=== PATIENT | male | born 1985 | race Caucasian/White ===

== ENCOUNTER 2016-06-24 02:30 | Observation (INO) ==
--- NOTE | 2016-06-24 02:49 | Emergency Department Note ---
Disposition Clinical Impression: Abnormal EKG Chest pain Qualifiers: Chest pain type: other chest pain Qualified Code(s): R07.89 - Other chest pain Disposition: Admitted As Inpatient Condition: Fair Time of Disposition: 04:57 Neuro HPI - General Chief Complaint: ED Nausea/Vomiting/Diarrhea Stated Complaint: N/V Time Seen by Provider: 06/24/16 02:33 Source: patient Mode of arrival: ambulatory Limitations: no limitations Nursing Notes Reviewed: Yes Vital Signs Reviewed: Yes - History of Present Illness HPI Narrative: 22-year-old male that presents with paresthesias to his right face, chest pain shortness breath and diaphoresis a few hours prior. Patient states that he woke up with symptoms and felt tingling and numbness in his face. Essentially spread to his bilateral face and bilateral upper extremities. Patient has a history of migraines, numbness taken propranolol but is not taking this lately. 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 Patient has no cardiac history no history of sudden in his family. Patient states that he has a history of hypertension or diabetes, no family history of heart attack. His pain was 5 out of 10, nonradiating mid chest. He said his chest pain is currently resolved, denies recent fever chills or weakness. Symptom Onset Unknown: Yes Location: left face, right face History of same: No Severity: none Symptoms Improving: No Improves with: time Worsens with: none On Anticoagulants: No Associated symptoms: Reports: chest pain. Denies: confusion, cough, diaphoresis , headaches, loss of appetite, malaise, nausea/vomiting - Related Data Home Medications: Home Medications Medication Instructions Recorded Confirmed Omeprazole [PriLOSEC] 20 mg PO DAILY 06/24/16 06/24/16 Propranolol [Inderal] 20 mg PO BID 06/24/16 06/24/16 Allergies/Adverse Reactions: Allergies Allergy/AdvReac Type Severity Reaction Status Date / Time No Known Allergies Allergy Verified 06/24/16 08:07 All systems ED: reviewed and negative except as stated. Constitutional: Denies: fever, chills Eyes: Denies: eye pain, eye discharge Cardiovascular: Reports: as per HPI, chest pain, dyspnea on exertion Respiratory: Denies: cough, dyspnea Gastrointestinal: Denies: abdominal pain, nausea, vomiting Genitourinary: Denies: urgency, dysuria Musculoskeletal: Denies: back pain Integumentary: Denies: rash Past Medical History - Past Medical History Attestation: Yes The following information was validated with the patient. Source: patient Medical history: Reports: non-contributory - Social History Smoking Status: Never smoker Smokeless Tobacco Status: No Alcohol use: Reports: rarely Physical Exam Constitutional: alert and oriented, appears moderately anxious. vital signs reviewed and wnl Neck: normal inspection, neck is supple, trachea midline Resp: normal chest inspection, CTA bilaterally, no resp distress CV: RRR, no m/g/r GI: normal inspection, Soft, NTND, BS present Back: normal inspection, no tenderness to palpation Neuro: A&O3, no gross motor or sensory deficits bilaterally MSK: normal inspection, bilateral UE and LE with normal ROM Psych: normal mood, normal affect Skin: No rashes, skin warm, dry, intact Course Course Narrative: 22-year-old male with chest pain earlier today, intermittent symptoms of chest pain shortness breath diaphoresis, woke up lifting and his face, near syncope, patient is an EKG that shows T-wave inversions in leads V3 V4 and V5, and ST depressions. Concerning for a Well[facility] however patient has no chest pain currently, and does not appear in ACS. Vital Signs Temperature 98.3 F 06/24/16 02:45 Pulse Rate 108 06/24/16 02:45 Respiratory Rate 18 06/24/16 02:45 Blood Pressure 151/106 06/24/16 02:45 O2 Sat by Pulse Oximetry 92 L 06/24/16 02:45 Temperature 97.7 F 06/24/16 15:01 Pulse Rate 89 06/24/16 15:01 Respiratory Rate 16 06/24/16 15:01 Blood Pressure 139/94 06/24/16 15:01 O2 Sat by Pulse Oximetry 95 06/24/16 15:01 Oxygen Delivery Oxygen Delivery Room Air Neuro Symptoms/Deficit - MDM Narrative Medical decision making narrative: 30-year-old male with near-syncope, chest pain or after activity with diaphoresis, sours on the ED, given aspirin, repeat EKG shows no worsening, improving acid impression shoulder still has inverted T-wave. - Differential Diagnosis Likely: cerebrovascular accident, subarachnoid hemorrhage, transient cerebral ischemia, convulsions - Medical Records Medical records reviewed: Yes I reviewed the patient's medical records. - Lab Data Lab results reviewed: Yes I reviewed the patient's lab results. Result diagrams: 06/24/16 02:54 06/24/16 02:54 Lab Results 06/24/16 06/24/16 06/24/16 Range/Units 02:40 02:54 02:54 WBC 11.3 H (4.3-11.1) K/mcL RBC 5.28 (4.19-5.50) M/mcL Hgb 15.4 (12.9-16.9) g/dL Hct 44.1 (37.5-50.1) % MCV 83.5 (83.0-100.0) fL MCH 29.2 (28.0-33.3) pg MCHC 34.9 (31.6-35.5) g/dL RDW 12.3 (11.5-14.5) % Plt Count 251 (140-400) K/mcL MPV 10.3 (9.4-12.4) fL Immature Gran % 1.6 (0-4) % Seg Neutrophils % 58.9 % Lymphocytes % 21.2 % Monocytes % 12.1 % Eosinophils % 5.7 % Basophils % 0.5 % Neutrophils # 6.7 (1.6-8.9) K/mcL Lymphocytes # 2.4 (0.6-4.6) K/mcL Monocytes # 1.4 H (0.0-1.3) K/mcL Eosinophils # 0.6 (0.0-0.6) K/mcL Basophils # 0.1 (0.0-0.2) K/mcL Platelet Estimate Normal (Normal) Immature Plt Fraction 5.0 (1.1-6.1) % PT 12.5 H (9.4-12.1) Seconds INR 1.2 APTT 30.4 (26.0-36.0) Seconds Sodium (136-145) mEq/L Potassium (3.5-4.5) mEq/L Chloride (98-109) mEq/L Carbon Dioxide (19-29) mEq/L BUN (8-26) mg/dL Creatinine (0.72-1.25) mg/dL Est GFR ( Amer) (> 60) Est GFR (Non-Af Amer) (> 60) BUN/Creatinine Ratio (6-26) Glucose (70-99) mg/dL POC Glucose 129 H (58-89) Calculated Osmolality (280-300) Calcium (8.6-10.8) mg/dL Total Bilirubin (0.2-1.2) mg/dL Direct Bilirubin (0.0-0.5) mg/dL Indirect Bilirubin (0.0-1.2) mg/dL AST (5-34) Units/L ALT (0-55) Units/L Alkaline Phosphatase (38-126) Units/L Troponin I (0-0.03) ng/mL Serum Total Protein (6.0-8.3) g/dL Albumin (3.5-5.0) g/dL Globulin (2.4-3.5) g/dL Albumin/Globulin Ratio (1.1-2.2) TSH (0.350-4.840) mcIU/mL 06/24/16 06/24/16 Range/Units 02:54 02:54 WBC (4.3-11.1) K/mcL RBC (4.19-5.50) M/mcL Hgb (12.9-16.9) g/dL Hct (37.5-50.1) % MCV (83.0-100.0) fL MCH (28.0-33.3) pg MCHC (31.6-35.5) g/dL RDW (11.5-14.5) % Plt Count (140-400) K/mcL MPV (9.4-12.4) fL Immature Gran % (0-4) % Seg Neutrophils % % Lymphocytes % % Monocytes % % Eosinophils % % Basophils % % Neutrophils # (1.6-8.9) K/mcL Lymphocytes # (0.6-4.6) K/mcL Monocytes # (0.0-1.3) K/mcL Eosinophils # (0.0-0.6) K/mcL Basophils # (0.0-0.2) K/mcL Platelet Estimate (Normal) Immature Plt Fraction (1.1-6.1) % PT (9.4-12.1) Seconds INR APTT (26.0-36.0) Seconds Sodium 137 (136-145) mEq/L Potassium 3.3 L (3.5-4.5) mEq/L Chloride 109 (98-109) mEq/L Carbon Dioxide 17 L (19-29) mEq/L BUN 13 (8-26) mg/dL Creatinine 0.99 (0.72-1.25) mg/dL Est GFR ( Amer) > 60 (> 60) Est GFR (Non-Af Amer) > 60 (> 60) BUN/Creatinine Ratio 13 (6-26) Glucose 139 H (70-99) mg/dL POC Glucose (58-89) Calculated Osmolality 286 (280-300) Calcium 9.2 (8.6-10.8) mg/dL Total Bilirubin 1.1 (0.2-1.2) mg/dL Direct Bilirubin 0.3 (0.0-0.5) mg/dL Indirect Bilirubin 0.8 (0.0-1.2) mg/dL AST 47 H (5-34) Units/L ALT 89 H (0-55) Units/L Alkaline Phosphatase 81 (38-126) Units/L Troponin I 0.00 (0-0.03) ng/mL Serum Total Protein 6.7 (6.0-8.3) g/dL Albumin 3.6 (3.5-5.0) g/dL Globulin 3.1 (2.4-3.5) g/dL Albumin/Globulin Ratio 1.2 (1.1-2.2) TSH 1.325 (0.350-4.840) mcIU/mL - Radiology Data Radiology results reviewed: Yes I reviewed the patient's radiology results. Chest X-Ray 06/24/16 02:46 IMPRESSION: No active cardiopulmonary disease. D/ / Shadi Alejandra MD / Shadi Alejandra MD Interpreting Provider: Shadi Alejandra MD Head CT 06/24/16 02:47 IMPRESSION: 1. No acute intracranial abnormality. D/ / Saeed Rizzo MD / Saeed Rizzo MD Interpreting Provider: Saeed Rizzo MD - EKG Data EKG attestation: Yes I reviewed and interpreted this EKG. Rate: tachycardia (Sinus tach rate of 114 [place] 112 QRS 90 QTc 395) [place]/QRS: normal ST segment depression in: v3, v4, v5 T wave inversions noted in: v3, v4, v5 When compared to previous EKG there are: previous EKG unavailable Interpretation: other (Repeat EKG at 4:58 AM shows a ventricular rate of 98 [place] 138 QRS 87 QTC 394) - Core Measures AMI Core Measures Followed: Yes Attestation Statement - Attestation Attestation: I examined this patient and my medical decision-making was reviewed with the TERRAZZO ROLLER/PA/Advanced Practice Nurse/Resident Physician. I agree with the documented findings, disposition and treatment plan as described except to the extent set forth below. 30 yo male presents with concern of chest pain and paresthesisas. 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 Pt states he recently developed tingling in the bilateral lower face and the bilateral distal fingertips. CT head negative for acute ICH. ECG shows Twave inversions of V3,[address] depressions. No chest pain in the ED. initial trop negative. Pt will be admitted for chest pain with ECG changes.
[2016-06-24 03:00] LABS: Basophils # 0.1 K/mcL (0.0-0.2); Basophils % 0.5 %; Eosinophils # 0.6 K/mcL (0.0-0.6); Eosinophils % 5.7 %; Hematocrit 44.1 % (37.5-50.1); Hemoglobin 15.4 g/dL (12.9-16.9); Immature Granulocytes % 1.6 % (0-4); Lymphocytes # 2.4 K/mcL (0.6-4.6); Lymphocytes % 21.2 %; Mean Corpuscular HGB Conc 34.9 g/dL (31.6-35.5); Mean Corpuscular Hemoglobin 29.2 pg (28.0-33.3); Mean Corpuscular Volume 83.5 fL (83.0-100.0); Mean Platelet Volume 10.3 fL (9.4-12.4); Monocytes # 1.4 K/mcL (0.0-1.3); Monocytes % 12.1 %; Neutrophils # 6.7 K/mcL (1.6-8.9); Platelet Count 251 K/mcL (140-400); Red Blood Count 5.28 M/mcL (4.19-5.50); Red Cell Distribution Width 12.3 % (11.5-14.5); Segmented Neutrophils % 58.9 %
[2016-06-24 03:04] LABS: INR 1.2; Prothrombin Time 12.5 Seconds (9.4-12.1)
[2016-06-24 03:07] LABS: Activated Partial Thrombo Time 30.4 Seconds (26.0-36.0)
[2016-06-24 03:11] LABS: BUN/Creatinine Ratio 13 (6-26); Blood Urea Nitrogen 13 mg/dL (8-26); Calcium 9.2 mg/dL (8.6-10.8); Carbon Dioxide 17 mEq/L (19-29); Chloride 109 mEq/L (98-109); Glucose 139 mg/dL (70-99); Osmolality,Calculated 286 (280-300); Potassium 3.3 mEq/L (3.5-4.5); Sodium 137 mEq/L (136-145); eGFR For African Americans > 60 (> 60); eGFR For Non-African Americans > 60 (> 60)
[2016-06-24] MEDS ORDERED: 0.9 % Sodium Chloride 1,000 ML ONE (03:37)
[2016-06-24] MEDS ORDERED: 0.9 % Sodium Chloride 1,000 ML IVC ONE (03:40)
[2016-06-24 03:46] LABS: Platelet Estimate Normal (Normal)
[2016-06-24] MEDS ORDERED: Aspirin 81 MG TAB.CHEW PO ONE (04:35)
[2016-06-24] MEDS ORDERED: Aspirin 81 MG TAB.CHEW ONE (04:59)
[2016-06-24 07:49] LABS: Alanine Aminotransferase 89 Units/L (0-55); Albumin 3.6 g/dL (3.5-5.0); Albumin/Globulin Ratio 1.2 (1.1-2.2); Alkaline Phosphatase 81 Units/L (38-126); Aspartate Amino Transferase 47 Units/L (5-34); Bilirubin,Direct 0.3 mg/dL (0.0-0.5); Bilirubin,Indirect 0.8 mg/dL (0.0-1.2); Bilirubin,Total 1.1 mg/dL (0.2-1.2); Globulin 3.1 g/dL (2.4-3.5); Total Protein 6.7 g/dL (6.0-8.3)
[2016-06-24 08:06] LABS: Thyroid Stimulating Hormone 1.325 mcIU/mL (0.350-4.840)
[2016-06-24] MEDS ORDERED: Naloxone 0.4 MG/ML INJ IVP PRN (08:08)
[2016-06-24] MEDS ORDERED: Ibuprofen 400 MG TABLET PO PRN (08:19)
--- NOTE | 2016-06-24 08:28 | Electrocardiograph Report ---
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
--- NOTE | 2016-06-24 08:29 | Electrocardiograph Report ---
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
--- NOTE | 2016-06-24 08:35 | Internal Med History&Physical ---
Date of Encounter: 06/24/16 Time of Encounter: 08:32 Assessment and Plan (1) Abnormal EKG Current visit: Yes Status: Acute ST depressions and T-wave inversions in the anterior leads Ordering echocardiogram, consult cardiology Monitor troponins, continue telemetry Consider stress test The patient will be admitted for observation. Full code. Time spent on this admission 40 minutes. High risk due to abnormal EKG Omeprazole for GI prophylaxis and Lovenox for DVT prophylaxis (2) Chest pain Current visit: Yes Status: Acute Qualifiers: Chest pain type: other chest pain Qualified Code(s): R07.89 - Other chest pain; R07.8 - Other chest pain (3) Dehydration Current visit: Yes Status: Acute Continue IV fluids (4) Transaminitis Current visit: Yes Status: Acute Unclear etiology monitor LFTs. ORDER lYME, EHRLICHIOSIS, tests consider RUQ US (5) GERD (gastroesophageal reflux disease) Current visit: Yes Status: Acute Continue omeprazole Qualifiers: Esophagitis presence: without esophagitis Qualified Code(s): K21.9 - Gastro -esophageal reflux disease without esophagitis (6) Migraine Current visit: Yes Status: Acute The patient used to take propranolol and Imitrex, has not been taking his propranolol for the past month and has not taking any Imitrex in the past 4 months Qualifiers: Migraine type: without aura Status migrainosus presence: without status migrainosus Intractability: not intractable Qualified Code(s): G43.009 - Migraine without aura, not intractable, without status migrainosus (7) Hypokalemia Current visit: Yes Status: Acute Replete as needed (8) Facial numbness Current visit: Yes Status: Acute Order an [facility] Internal Medicine - H&P: HPI Chief complaint: Facial numbness and chest tightness Admitted From: Emergency Dept History of present illness: Mr. Frey is a 30 year old male with a past medical history of migraines and GERD who came to the emergency room complaining of shortness of breath, diaphoresis, initially right facial numbness that progressed today left side, accompanied by bilateral hand numbness. 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 His white blood cell count is 11.3 his potassium is 3.3, he said that his was probably slightly dehydrated. Today his AST is 47 and ALT is 89. His heart rate was 108 and his blood pressure is 151/106. The EKG shows ST depressions in T-wave inversions in the anterior leads. He says he has been having a dry cough for a while, denies any fevers but has been having some blurry vision, nausea and feels lightheaded. Past Med Surg Social Fam HX - Past Medical History Medical history: GERD, migraine - Past Surgical History Surgical History: no surgical history - Social History Smoking Status: Never smoker Smokeless Tobacco Status: No Alcohol use: occasionally Drug use: none - Additional Family History Additional family history: Mother with leukemia and myocardial infarction in her late 40s Internal Medicine - H&P: Meds Omeprazole [PriLOSEC] 20 mg PO DAILY 06/24/16 [History] Propranolol [Inderal] 20 mg PO BID 06/24/16 [History] Allergies No Known Allergies Allergy (Verified 06/24/16 08:07) All Systems PM: A 10-system review of systems was performed and is negative for pertinent findings except as documented above in the HPI. Review of systems: Feels fatigued, denies any abdominal pain, no diarrhea, no dysuria. Other systems out of the ten reviewed were negative - Constitutional Vitals: Temp Pulse Resp BP Pulse Ox 97.8 F 90 16 122/87 93 L 06/24/16 06:47 06/24/16 06:47 06/24/16 06:47 06/24/16 06:47 06/24/16 06:47 - Head Head exam: Present: atraumatic, normocephalic - Eye Eye exam: Present: PERRL, conjuntiva pink, sclera anicteric Pupils: Present: PERRL - Neck Neck exam general surgery: Present: supple, trachea midline. Absent: lymphadenopathy - Respiratory Respiratory exam: Present: CTAB. Absent: accessory muscle use, rales, rhonchi, wheezes - Cardiovascular Cardiovascular exam: Present: RRR, +S1, +S2, tachycardia. Absent: diastolic murmur, gallop, rubs, systolic murmur - GI/Abdominal GI/Abdominal exam: Present: normal bowel sounds, soft, no peritoneal signs. Absent: distended, tenderness - Extremities Exam Extremities exam: Present: warm, radial pulses palpable and symetrical. Absent : calf tenderness, cyanotic, pedal edema - Neurological Exam Neurological exam: Present: CN II-XII intact, oriented X3, no focal deficits. Absent: pronater drift, facial droop, speech deficit - Skin Skin exam: Present: dry, intact Internal Med - H&P Results - Labs CBC & Chem 7: 06/24/16 02:54 06/24/16 02:54
[2016-06-24 09:34] LABS: Chol/HDL Ratio 5.9 (0-4.9)
[2016-06-24] MEDS: 0.9 % Sodium Chloride 1,000 ML IVC SCH ×3 (10:45→21:28)
[2016-06-24 10:46] LABS: Bilirubin,Urine Negative (Negative); Blood,Urine Negative (Negative); Clarity,Urine Clear (Clear); Color,Urine Yellow (Yellow); Glucose,Urine (UA) Normal (Normal); Ketones,Urine Negative (Negative); Leukocyte Esterase,Urine Negative (Negative); Nitrite,Urine Negative (Negative); Protein,Urine Negative (Neg-Trace); Specific Gravity,Urine 1.011 (1.010-1.025); Urobilinogen,Urine Normal (Normal)
--- NOTE | 2016-06-24 11:27 | Cardiology Consult Note ---
<Karel Burks - Last Filed: 06/24/16 11:21> Date of Encounter: 06/24/16 Time of Encounter: 11:20 Assessment and Plan (1) Chest pain Current Visit: Yes Status: Acute Mr. Frey presents with n/t in his face and hands, dizziness, and he also describes intermittent chest pressure increasing with cough. His discomfort occurs with dyspnea and increases with cough. Chest pain sounds pleuritic in the setting of recent bronchitis. His EKG Shows T wave changes in the anteriolateral leads. Possible LVH. Non-specific changes in the inferior leads. Troponin negative x 1. MRI of the head negative for acute infarct. Cardiac risk factors include family history (mother CT at age 46), probable hypertension, HLD . Check TTE. Continue to trend troponin. Qualifiers: Chest pain type: other chest pain Qualified Code(s): R07.89 - Other chest pain; R07.8 - Other chest pain (2) Abnormal EKG Current Visit: Yes Status: Acute See plan above. Discussion w patient/family: The assessment and plan as outlined above was discussed with the patient and/or family members who expressed understanding and agreement. All questions were answered. Thank you for involving us in the care of your patient. Please call with any questions. History of Present Illness Consult date: 06/24/16 Requesting physician: Sanjay Short Consult reason: abnormal EKG Chief complaint: Numbness and tingling in face and hands, chest discomfort History of present illness: Mr. Frey is a 30 year old male who presents with numbness and tingling in his right face and fingers associated with dizziness. He also reports intermittent midsternal chest tightness and dyspnea with exertion over the past month. Diagnosed with bronchitis two weeks ago and took antibiotic. Continues to have dry cough. His chest pain increases with cough. His initial work-up revealed mildly elevated WBC, hyperlipidemia, mild elevation in liver enzymes, and hypokalemia. He was initially tachycardic and now NSR, b/p 156/106. He denies fever or chills. His EKG showed sinus tachycardia with T wave inversion in the anteriolateral leads. Non-specific t wave changes in the inferior leads. HR 120 bpm. There is no previous EKG to compare. Cardiology consulted for abnormal EKG. He denies previous history of heart disease. No previous cardiac work-up. Past Med Surg Social Fam HX - Past Medical History Medical history: GERD, migraine - Past Surgical History Surgical History: no surgical history - Social History Smoking Status: Never smoker Smokeless Tobacco Status: No Alcohol use: occasionally Drug use: none - Family History Mother Cause of : leukemia Hx Family Cardiac Disorders: Yes (CT at age 46) Medications and Allergies Omeprazole [PriLOSEC] 20 mg PO DAILY 06/24/16 [History] Propranolol [Inderal] 20 mg PO BID 06/24/16 [History] Allergies No Known Allergies Allergy (Verified 06/24/16 08:07) All Systems Review: A 10-system review of systems was performed and is negative for pertinent findings except as documented above in the HPI. Physical Examination Vital Signs Temp Pulse Resp BP Pulse Ox 06/24/16 06:47 97.8 F 90 16 122/87 93 L 06/24/16 06:13 16 148/84 06/24/16 04:25 82 16 149/98 98 06/24/16 02:45 98.3 F 108 18 151/106 92 L Intake and Output 06/23/16 06/24/16 06/24/16 23:59 07:59 15:59 Intake Total 1000 / 1000 Balance 1000 / 1000 Intake: IV Fluids 1000 / 1000 0.9 % Sodium Chloride 1, 1000 / 1000 000 ML @ 3750 mls/hr IVC .Q16M ONE Rx#:[id number] Other: Weight 122.47 kg Blood Glucose* 129 Patient Weight 06/24/16 23:59 Weight 122.47 kg General: Conversant, No Apparent Distress HEENT: Atraumatic, Normocephaly, Mucus Membranes Moist Neck: No JVD, Normal carotid pulses Cardiac: Reg Rate and Rhythm, Normal S1 and S2, No Murmur Lungs: Normal Breath Sounds, No Wheeze, Rales, Rhonchi, Other (Dry cough) Neuro: Alert and responsive, No focal deficits noted Abdomen: Soft, Non-Tender Skin: No rashes noted on visualized skin Musculoskeletal: No Chest Wall Tenderness Extremities: No Clubbing, No Cyanosis, No Edema, Normal Pulses Results 06/24/16 02:54 06/24/16 02:54 Lab Results 06/24/16 06/24/16 08:43 08:43 Magnesium 2.0 Troponin I 0.00 - Imaging and Cardiology Echo: pending - EKG Interpretation EKG results cardiology: personally reviewed (SR, with inverted t-waves in V2-V5 (possible LVH), non-specific inferior t-wave problems.) Consult Discharge Plan - Plan Referrals: Lavelle Pham MD [Primary Care Provider] - <Neha Sarah - Last Filed: 06/24/16 14:37> Assessment and Plan Discussion w patient/family: The assessment and plan as outlined above was discussed with the patient and/or family members who expressed understanding and agreement. All questions were answered. Thank you for involving us in the care of your patient. Please call with any questions. History of Present Illness History of present illness: Mr. Frey is a 30 year old male All Systems Review: A 10-system review of systems was performed and is negative for pertinent findings except as documented above in the HPI. Physical Examination Vital Signs, Last 4 Hours Temp Pulse Resp BP Pulse Ox 06/24/16 11:33 98.0 F 97 16 131/87 95 Results 06/24/16 02:54 06/24/16 02:54 Lab Results 06/24/16 06/24/16 08:43 08:43 Magnesium 2.0 Troponin I 0.00 - Attending Attestation I examined this patient and my medical decision-making was reviewed with the CHEMISTRY TEACHER/PA/Advanced Practice Nurse/Resident Physician. I agree with the documented findings, disposition and treatment plan. Mr. Frey is a young 30 year old man presenting with nonspecific symptoms of intermittent chest pain and arm numbness and tingling. He reports being diagnosed with bronchitis a few weeks ago and hasn't felt back to his usual state of health since that time. He also feels dyspneic with exertion. He presents today with an ECG demonstrating abnormal ST-T wave findings in the precordial leads. His troponin is negative x 2 and we would not expect a 30 year old who doesn't smoke or have diabetes to have obstructive CAD as a cause for his symptoms. His symptoms are also not consistent with pericarditis. Nevertheless, because of his symptoms and abnormal ECG we recommend an echo for an evaluation of structural heart disease. We may consider a stress echo for functional information.
[2016-06-24] MEDS: *HR* Enoxaparin 40 MG/0.4 ML SYRINGE SQ SCH (12:23)
[2016-06-24] MEDS: Acetaminophen 325 MG TABLET PO PRN (12:28)
[2016-06-24] MEDS: Ondansetron ODT 4 MG TAB.RAPDIS SL PRN ×2 (12:28→21:25)
[2016-06-25] MEDS: 0.9 % Sodium Chloride 1,000 ML IVC SCH (04:16)
[2016-06-25 04:49] LABS: Hematocrit 41.3 % (37.5-50.1); Hemoglobin 14.1 g/dL (12.9-16.9); Mean Corpuscular HGB Conc 34.1 g/dL (31.6-35.5); Mean Corpuscular Hemoglobin 29.6 pg (28.0-33.3); Mean Corpuscular Volume 86.8 fL (83.0-100.0); Mean Platelet Volume 10.9 fL (9.4-12.4); Platelet Count 209 K/mcL (140-400); Red Blood Count 4.76 M/mcL (4.19-5.50); Red Cell Distribution Width 12.6 % (11.5-14.5)
[2016-06-25 05:07] LABS: Alanine Aminotransferase 74 Units/L (0-55); Albumin 3.3 g/dL (3.5-5.0); Albumin/Globulin Ratio 1.2 (1.1-2.2); Alkaline Phosphatase 73 Units/L (38-126); Aspartate Amino Transferase 45 Units/L (5-34); BUN/Creatinine Ratio 12 (6-26); Bilirubin,Total 0.6 mg/dL (0.2-1.2); Blood Urea Nitrogen 13 mg/dL (8-26); Calcium 9.1 mg/dL (8.6-10.8); Carbon Dioxide 21 mEq/L (19-29); Chloride 113 mEq/L (98-109); Globulin 2.8 g/dL (2.4-3.5); Glucose 105 mg/dL (70-99); Osmolality,Calculated 288 (280-300); Potassium 4.3 mEq/L (3.5-4.5); Sodium 139 mEq/L (136-145); Total Protein 6.1 g/dL (6.0-8.3); eGFR For African Americans > 60 (> 60); eGFR For Non-African Americans > 60 (> 60)
[2016-06-25] MEDS: *HR* Enoxaparin 40 MG/0.4 ML SYRINGE SQ SCH (06:41)
--- NOTE | 2016-06-25 07:53 | ECHO - Doppler Report ---
Echocardiogram Name: Alek Frey Date of Study: 06/24/2016 Date: 1985 Ht: 72.0 in Medical Record#: [id number] Age: 30 Wt: 270.0 lb Gender: Male BSA: 2.42 Order #: [id number] Location: [facility] Room #: 3B33 Reading Physician: Kunal Pearce MD, [facility] [place] Room Operator: Neha Collins Ordering Physician: Sanjay Short MD Primary Physician: Lavelle Pham MD Indications: St depressions Impressions: Low-normal LV systolic function, LVEF 50-55%. Normal left ventricular diastolic function. Normal right ventricular size and function. No significant valvular dysfunction. Left Ventricular Wall Motion: Rest Echo Findings All wall segments showed normal motion. Findings: Study Quality * Technically adequate exam. ECG Findings * Normal sinus rhythm. Left Ventricle * Low-normal LV systolic function, LVEF 50-55%. * Normal LV chamber size and wall thickness. * Normal left ventricular diastolic function. Right Ventricle * Normal right ventricular size and function. Left Atrium * Normal left atrial size. Right Atrium * Normal right atrial size. Aorta * Normally sized aortic root. Pericardium * There is no pericardial effusion present. IVC * The IVC is not well evaluated. Aortic Valve * Aortic valve not well visualized. * No aortic stenosis. * No aortic regurgitation. Mitral Valve * Normal mitral valve structure. * No mitral stenosis. * Trace mitral regurgitation. Tricuspid Valve * Tricuspid valve not well visualized. * No tricuspid stenosis. * Trace tricuspid regurgitation. * Unable to estimate RVSP due to lack of TR jet. Pulmonic Valve * Pulmonic valve not well visualized. * No pulmonic stenosis. * Trace pulmonic regurgitation. History Family History of CAD Measurements: BP: 139/ 94 2D Normal Values RVIDd: 3.60 cm IVSd: 1.00 cm 0.6 - 1.0 cm LVIDd: 5.10 cm 3.7 - 5.6 cm LVPWd: 1.00 cm 0.6 - 1.1 cm LVIDs: 3.30 cm 1.5 - 3.6 cm AO: 3.20 cm < 4.0 cm %FS: 35.30 cm >25 % LA volume: 49 Mitral Valve Peak E:.89 m/sec Peak A:.52 m/sec E/A Ratio:1.7 Peak E' Lat Gen:16 cm/s Peak E' Med Gen:10.1 cm/s E/E' Lat Ratio:5.6 E/E' Med Ratio:8.8 Updated by Kunal Pearce MD, [facility] on 06/25/2016 7:47:08 AM electronically signed on 06/25/2016 7:47:39 AM with status of Final Wall Motion Araya: 1=Normal, 2=Hypokinesis, 3=Akinesis, 4=Dyskinesis, 5=Aneurysmal, 6=Hyperkinetic, X=Not Visualized (Blank)=Missing
--- NOTE | 2016-06-25 11:21 | Cardiology Progress Note ---
Date of Encounter: 06/25/16 Time of Encounter: 11:19 Assessment and Plan (1) Chest pain Current Visit: Yes Status: Acute Mr. Frey presents with n/t in his face and hands, dizziness, and he also describes intermittent chest pressure increasing with cough. His discomfort occurs with dyspnea and increases with cough. Chest pain sounds pleuritic in the setting of recent bronchitis. His EKG Shows T wave changes in the anteriolateral leads. Non-specific changes in the inferior leads. Troponin negative x 4. MRI of the head negative for acute infarct. TTE shows EF 50-55%, normal LV size and function, normal RV size and function, no significant valvular disease. Cardiac risk factors include family history (mother [place] at age 46), probable hypertension, HLD . Discussed with Dr. Sarah, We will proceed with stress echo to further evaluate. Qualifiers: Chest pain type: other chest pain Qualified Code(s): R07.89 - Other chest pain; R07.8 - Other chest pain (2) Abnormal EKG Current Visit: Yes Status: Acute See plan above. (3) Hyperlipidemia Current Visit: Yes Status: Acute Healthy diet and exercise discussed. Qualifiers: Hyperlipidemia type: pure hypercholesterolemia Qualified Code(s): E78.00 - Pure hypercholesterolemia, unspecified; E78.0 - Pure hypercholesterolemia Discussion w patient/family: The assessment and plan as outlined above was discussed with the patient and/or family members who expressed understanding and agreement. All questions were answered. Thank you for involving us in the care of your patient. Please call with any questions. Subjective Principal diagnosis: Chest pain, abnormal EKG Interval history: Mr. Frey reports his facial numbness resolved. MRI negative. He c/o intermittent chest congestion and cough. Objective Vital Signs, Last 4 Hours Temp Pulse Resp BP Pulse Ox 06/25/16 10:51 98.0 F 91 16 118/72 93 L 06/25/16 08:54 126/78 General: Conversant, No Apparent Distress HEENT: Atraumatic, Normocephaly, Mucus Membranes Moist Neck: No JVD, Normal carotid pulses Cardiac: Reg Rate and Rhythm, Normal S1 and S2, No Murmur Lungs: Normal Breath Sounds, No Wheeze, Rales, Rhonchi Neuro: Alert and responsive, No focal deficits noted Abdomen: Soft, Non-Tender Skin: No rashes noted on visualized skin Musculoskeletal: No Chest Wall Tenderness Extremities: No Clubbing, No Cyanosis, No Edema, Normal Pulses Results 06/25/16 04:07 06/25/16 04:07 Lab Results 06/24/16 06/24/16 06/25/16 14:46 20:47 04:07 WBC 8.4 Hgb 14.1 Hct 41.3 Plt Count 209 Sodium Potassium Chloride Carbon Dioxide BUN Creatinine Glucose Calcium Total Bilirubin AST ALT Alkaline Phosphatase Troponin I 0.00 0.00 06/25/16 04:07 WBC Hgb Hct Plt Count Sodium 139 Potassium 4.3 D Chloride 113 H Carbon Dioxide 21 BUN 13 Creatinine 1.11 Glucose 105 H Calcium 9.1 Total Bilirubin 0.6 AST 45 H ALT 74 H Alkaline Phosphatase 73 Troponin I - Imaging and Cardiology Echo: report reviewed - EKG Interpretation EKG results cardiology: personally reviewed Consult Discharge Plan - Plan Referrals: Lavelle Pham MD [Primary Care Provider] -
[2016-06-25] MEDS: Acetaminophen 325 MG TABLET PO PRN (14:27)
--- NOTE | 2016-06-25 15:03 | Nuclear Medicine Stress Report ---
Stress Echo No Doppler Name: Alek Frey Date of Study: 06/25/2016 Date: 1985 Ht: 72.0in Medical Record#: [id number] Age: 30 Wt: 270.0lb Gender: Male BSA: 2.42 Order #: [id number] Location: [facility] Room #: 3B Reading Physician: Kunal Pearce MD, [facility] Supervisor Detasseling Crew: aPt Miller RDCS, RVT Supervising Provider: Deb Beaver CNP Primary Physician: Lavelle Pham MD Ordering Physician: Karel Burks CNP Indications: Chest pain, Abnormal EKG Impressions: The exercise capacity was average. Patient reported moderate chest tightness with exercise. Stress ECG is non-diagnostic for ischemia due to baseline ST-T wave abnormalities. Normal LV systolic function, LVEF 55-60% Appropriate increase in contractility of all myocardial segments with exercise. No echocardiographic evidence of ischemia. Findings: Stress Echo * Baseline ECG demonstrated sinus rhythm, diffuse ST-T wave abnormalities. * No arrhythmias noted prior to exam beginning. * The exercise capacity was average. * The patient demonstrated a normal blood pressure response. * Patient reported moderate chest tightness with exercise. * No arrhythmias during exericse or recovery. * Stress ECG is non-diagnostic for ischemia due to baseline ST-T wave abnormalities. * Normal LV systolic function, LVEF 55-60% * Appropriate increase in contractility of all myocardial segments with exercise. Left Ventricular Wall Motion: Rest Echo Findings All wall segments showed normal motion. Stress Echo Findings All wall segments showed normal motion. Stress Test Summary: Treadmill Protocol: Korey Baseline Information: Resting Heart Rate: 98 Predicted Max HR: 192 Resting BP: 136/88 Stress Information: Stress Time: 6:00 minutes Test Terminated Due to: Chest pain Maximum Blood Pressure: 182/96 Maximum Heart Rate: 167 Percent Maximum Heart Rate Achieved: 87 Double Product: [id number] METS Reached: 7 History: Family History of CAD Previous Echo06/24/16 Updated by Kunal Pearce MD, [facility] on 06/25/2016 2:56:13 PM electronically signed on 06/25/2016 2:57:02 PM with status of Final Wall Motion Araya: 1=Normal, 2=Hypokinesis, 3=Akinesis, 4=Dyskinesis, 5=Aneurysmal, 6=Hyperkinetic, X=Not Visualized (Blank)=Missing Rest Stress
[2016-06-25 15:28] VITALS: BP 130/77
--- NOTE | 2016-06-25 16:04 | Discharge Summary ---
Date of Encounter: 06/25/16 Time of Encounter: 16:01 - Discharge Diagnosis (1) Dehydration Priority: Primary Status: Acute (2) Abnormal EKG Priority: Primary Status: Acute (3) Chest pain Priority: Primary Status: Acute Qualifiers: Chest pain type: other chest pain Qualified Code(s): R07.89 - Other chest pain; R07.8 - Other chest pain (4) Transaminitis Priority: Secondary Status: Acute (5) GERD (gastroesophageal reflux disease) Priority: Secondary Status: Acute Qualifiers: Esophagitis presence: without esophagitis Qualified Code(s): K21.9 - Gastro -esophageal reflux disease without esophagitis (6) Migraine Priority: Secondary Status: Acute Qualifiers: Migraine type: without aura Status migrainosus presence: without status migrainosus Intractability: not intractable Qualified Code(s): G43.009 - Migraine without aura, not intractable, without status migrainosus (7) Hypokalemia Priority: Secondary Status: Acute (8) Facial numbness Priority: Secondary Status: Acute - Discharge Medications Prescriptions: Omeprazole [PriLOSEC] 20 mg PO DAILY #30 capsule. Propranolol [Inderal] 20 mg PO BID #60 tablet Home Medications: Omeprazole [PriLOSEC] 20 mg PO DAILY #30 capsule. 06/25/16 [Rx] Propranolol [Inderal] 20 mg PO BID #60 tablet 06/25/16 [Rx] Allergies/Adverse Reactions: Allergies No Known Allergies Allergy (Verified 06/24/16 08:07) Procedures/tests Complete & Pending: Procedures Performed prior 72 hours Category Date Time Status MR head/brain wo con [MR] Routine MRI 06/24/16 08:29 Completed EV echocardiogram Routine Y 06/24/16 08:22 Completed EV stress echo Routine Y 06/25/16 09:05 Completed Date of admission: 06/24/16 04:55 Primary care physician: Lavelle Pham MD Consults: 06/24/16 08:31 Consult to Cardiology [CONS] Routine Comment: Consulting Provider: Cardiology Eula Reason for Consult: abnormal EKG, st depression anterior leads Call Completed: Yes - Patient Status Disposition: Home, Self-Care Condition: Good Overall status at discharge: patient is progressing back to baseline - Discharge Instructions Follow Up With: Lavelle Pham MD [Primary Care Provider] - Additional Instructions: Follow with primary care physician within the next 7 days. Avoid alcohol, decrease cholesterol/fatty meals intake. - Diet and Activity Activity: increase activity as tolerated Diet: low fat, low cholesterol Hospital course: Mr. Frey is a 30 year old male with a past medical history of migraines and GERD who came to the emergency room complaining of shortness of breath, diaphoresis, initially right facial numbness that progressed to the left side, accompanied by bilateral hand numbness. 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 His white blood cell count was 11.3 his potassium was 3.3, he said that he was probably slightly dehydrated. AST was 47 (now 45) and ALT (now 74) 89. Normal bilirubin 0.6 and direct bilirubin 0.3. . His heart rate was 108 and his blood pressure is 151/106. The EKG showed ST depressions in T-wave inversions in the anterior leads. The patient was admitted and was given IV fluids. The patient was evaluated by the cardiology service and because of his abnormal EKG and stress echo was indicated that did not show any abnormalities. His cholesterol level is 200 and his LDL is 138 HDL 34 the patient AST and ALT are slightly elevated he would prefer to follow with his primary care physician to start any other medication. She was offered albuterol as he gets short of breath during the test and possibly has some type of reactive airway disease but again he prefers to follow-up with his primary care physician. The stress echo does not show any abnormalities. Normal echocardiogram showed an ejection fraction of 50-55% with no wall motion abnormalities. MRI of the brain did not show any abnormalities. - Time Spent with Patient Total time spent providing and/or coordinating discharge services: Greater than 30 minutes (40 min) - Constitutional Vitals: Temp Pulse Resp BP Pulse Ox 97.6 F 67 15 130/77 97 06/25/16 15:26 06/25/16 15:26 06/25/16 15:26 06/25/16 15:26 06/25/16 15:26 - Head Head exam: Present: atraumatic, normocephalic - Eye Eye exam: Present: PERRL, conjuntiva pink, sclera anicteric Pupils: Present: PERRL - Neck Neck exam general surgery: Present: supple, trachea midline. Absent: lymphadenopathy - Respiratory Respiratory exam: Present: CTAB. Absent: accessory muscle use, rales, rhonchi, wheezes - Cardiovascular Cardiovascular exam: Present: RRR, +S1, +S2. Absent: diastolic murmur, gallop, rubs, systolic murmur - GI/Abdominal GI/Abdominal exam: Present: normal bowel sounds, soft, no peritoneal signs. Absent: distended, tenderness - Extremities Exam Extremities exam: Present: warm, radial pulses palpable and symetrical. Absent : calf tenderness, cyanotic, pedal edema - Neurological Exam Neurological exam: Present: CN II-XII intact, oriented X3, no focal deficits. Absent: pronater drift, facial droop, speech deficit - Skin Skin exam: Present: dry, intact
== END 2016-06-25 17:11 | disposition home or self-care (01) ==
LOC: 3BNU 02:30 → EMEROO 02:30 → SUATTDRO 04:55 → 3BNU 06:20
PROVIDERS: ADMIT Internal Medicine; ATTEND Internal Medicine

== ENCOUNTER 2020-10-16 01:41 | Observation (INO) ==
[2020-10-16 02:45] LABS: Basophils # 0.1 K/mcL (0.0-0.2); Basophils % 0.8 %; Eosinophils # 0.3 K/mcL (0.0-0.6); Eosinophils % 3.9 %; Hematocrit 48.3 % (37.5-50.1); Immature Granulocytes % 1.1 % (0-4); Lymphocytes # 2.3 K/mcL (0.6-4.6); Lymphocytes % 26.3 %; Mean Corpuscular HGB Conc 35.2 g/dL (31.6-35.5); Mean Corpuscular Hemoglobin 29.5 pg (28.0-33.3); Mean Corpuscular Volume 83.7 fL (83.0-100.0); Mean Platelet Volume 10.4 fL (9.4-12.4); Monocytes # 0.9 K/mcL (0.0-1.3); Neutrophils # 5.1 K/mcL (1.6-8.9); Platelet Count 312 K/mcL (140-400); Red Blood Count 5.77 M/mcL (4.19-5.50); Red Cell Distribution Width 12.1 % (11.5-14.5); Segmented Neutrophils % 57.9 %; White Blood Count 8.8 K/mcL (4.3-11.1)
[2020-10-16] MEDS ORDERED: Isovue-370 500 ML BOTTLE IVP ONE (02:56)
[2020-10-16 03:06] LABS: BUN/Creatinine Ratio 16 (6-26); Blood Urea Nitrogen 14 mg/dL (6-20); Calcium 10.6 mg/dL (8.6-10.3); Carbon Dioxide 19 mEq/L (23-29); Chloride 107 mEq/L (98-107); Glucose 135 mg/dL (70-105); Osmolality,Calculated 287 (280-300); Potassium 3.7 mEq/L (3.5-5.1); Sodium 137 mEq/L (136-145); eGFR For African Americans > 60 (> 60); eGFR For Non-African Americans > 60 (> 60)
[2020-10-16 03:07] LABS: Troponin I < 0.03 ng/mL (< 0.04)
[2020-10-16] MEDS ORDERED: Aspirin 81 MG TAB.CHEW PO ONE (05:58)
[2020-10-16] MEDS ORDERED: Nitroglycerin 0.4 MG TAB.SUBL SL ONE (06:01)
[2020-10-16] MEDS ORDERED: *HR* FentaNYL (PF) 100 MCG/2 ML VIAL IVP ONE (06:14)
[2020-10-16] MEDS ORDERED: Melatonin 3 MG TABLET PO PRN (07:47)
[2020-10-16] MEDS ORDERED: Acetaminophen 325 MG TABLET PO PRN (07:47)
[2020-10-16] MEDS ORDERED: Naloxone 0.4 MG/ML INJ IVP PRN (07:47)
[2020-10-16] MEDS ORDERED: Ondansetron 4 MG/2 ML VIAL IVP PRN (07:47)
[2020-10-16] MEDS ORDERED: Regadenoson 0.4 MG/5 ML SYRINGE IVP ONE ×2 (08:42→10:53)
[2020-10-16] MEDS ORDERED: Pantoprazole 40 MG VIAL IVP ONE (12:09)
[2020-10-16] MEDS: 0.9 % Sodium Chloride 1,000 ML IVC SCH ×2 (13:23→21:40)
[2020-10-17 05:58] LABS: Basophils # 0.1 K/mcL (0.0-0.2); Basophils % 0.7 %; Eosinophils # 0.4 K/mcL (0.0-0.6); Eosinophils % 4.4 %; Hematocrit 45.7 % (37.5-50.1); Immature Granulocytes % 1.6 % (0-4); Lymphocytes # 2.9 K/mcL (0.6-4.6); Lymphocytes % 30.5 %; Mean Corpuscular HGB Conc 32.6 g/dL (31.6-35.5); Mean Corpuscular Hemoglobin 28.5 pg (28.0-33.3); Mean Corpuscular Volume 87.5 fL (83.0-100.0); Mean Platelet Volume 10.8 fL (9.4-12.4); Monocytes # 0.9 K/mcL (0.0-1.3); Monocytes % 9.1 %; Platelet Count 261 K/mcL (140-400); Red Blood Count 5.22 M/mcL (4.19-5.50); Red Cell Distribution Width 12.2 % (11.5-14.5); Segmented Neutrophils % 53.7 %; White Blood Count 9.3 K/mcL (4.3-11.1)
[2020-10-17 05:59] LABS: Hemoglobin 14.9 g/dL (12.9-16.9)
[2020-10-17 06:21] LABS: BUN/Creatinine Ratio 15 (6-26); Blood Urea Nitrogen 15 mg/dL (6-20); Calcium 9.5 mg/dL (8.6-10.3); Carbon Dioxide 21 mEq/L (23-29); Chloride 107 mEq/L (98-107); Chol/HDL Ratio 5.7 (0-4.9); Cholesterol 232 mg/dL (< 200); Glucose 99 mg/dL (70-105); HDL Cholesterol 41 mg/dL (40-59); LDL Cholesterol,Calculated 151 mg/dL (< 100); Osmolality,Calculated 283 (280-300); Potassium 4.3 mEq/L (3.5-5.1); Sodium 136 mEq/L (136-145); Triglycerides 200 mg/dL (< 150); eGFR For African Americans > 60 (> 60); eGFR For Non-African Americans > 60 (> 60)
[2020-10-17] MEDS ORDERED: Aspirin 81 MG TAB.CHEW PO SCH (09:00)
[2020-10-17] MEDS ORDERED: Isovue-370 500 ML BOTTLE IVP ONE (10:23)
[2020-10-17] MEDS ORDERED: Nitroglycerin 0.4 MG TAB.SUBL SL PRN (10:23)
[2020-10-17] MEDS ORDERED: Perflutren Lipid Microsphere 1.3 ML in 0.9 % Sodium Chloride 8.7 ML IVP PRN (10:26)
[2020-10-17 11:51] VITALS: BP 126/79; PULSE 90; TEMP 98.3; O2SAT 94
[2020-10-17] MEDS ORDERED: IVABRADINE HCL 7.5 MG TABLET PO ONE (12:15)
[2020-10-17] MEDS: *HR* Metoprolol 5 MG/5 ML VIAL IVP PRN ×2 (14:53→15:30)
== END 2020-10-17 18:38 | disposition home or self-care (01) ==
LOC: 3BNU 01:41 → EMEROOARM 01:41 → SUATTDRO 06:43 → 3BNU 07:44
PROVIDERS: ADMIT Pharmacist; ATTEND Internal Medicine